=== PATIENT | male | born 1980 | race African-American/Black ===

== ENCOUNTER → 2022-12-29 | Outpatient (CLI) | payer OTHER | LOC: M PLARAD 08:03 | PROVIDERS: ATTEND Physician Assistant | DX: M54.2 Cervicalgia (principal) ==

== ENCOUNTER 2024-10-20 08:50 | Day surgery (SDC) | payer OTHER ==
[~2024-10-20] VITALS: Ht 198.1 cm; Wt 93.5 kg
[~2024-10-20 08:50] MED LIST: LIDOCAINE 2% 100MG/5ML SDV (FOR ANES.) As Ordered ONE; METF-839 PO; VITA100093 PO; propofoL 200 MG/20 ML VIAL As Ordered ONE
[2024-10-20 10:38] VITALS: TEMP 97.8
[2024-10-20 10:55] VITALS: BP 116/72; O2SAT 99
== END 2024-10-20 11:00 | disposition home or self-care (01) ==
LOC: M OPP 08:50
PROVIDERS: ATTEND Internal Medicine Gastroenterology
DX: Z12.11 Encounter for screening for malignant neoplasm of colon (principal); K64.0 First degree hemorrhoids; Z80.0 Family history of malignant neoplasm of digestive organs; Z79.84 Long term (current) use of oral hypoglycemic drugs; Z79.899 Other long term (current) drug therapy

== ENCOUNTER → 2025-05-05 | Outpatient (CLI) | payer OTHER ==
[~2025-05-05] MED LIST changes: -LIDOCAINE 2% 100MG/5ML SDV (FOR ANES.) As Ordered ONE; -propofoL 200 MG/20 ML VIAL As Ordered ONE
== END ==
LOC: M RAD 09:52
PROVIDERS: ATTEND Nurse Practitioner Family
DX: R94.5 Abnormal results of liver function studies (principal)